=== PATIENT | male | born 1945 | race Caucasian/White ===

== ENCOUNTER 2017-11-01 00:40 | Inpatient (IN) | payer OTHER, MEDICAID ==
[2017-11-01 01:23] LABS: ADD MAN DIFF? NO
[2017-11-01] MEDS: ONDANSETRON 4 MG INJ IV ×2 (01:41→23:51)
[2017-11-01] MEDS: morphine 4 MG/ML VIAL IV ×2 (01:41→07:13)
[2017-11-01 01:42] LABS: PARTIAL THROMBOPLASTIN TIME 23.8 Sec (25.0-35.0); PROTIME 12.2 Sec (11.9-14.9)
[2017-11-01 01:48] LABS: ANION GAP 13 (8-16); BLOOD UREA NITROGEN 13 mg/dl (7-20); CARBON DIOXIDE 26 mmol/L (21-31); CHLORIDE 104 mmol/L (97-110); CREATININE 0.91 mg/dl (0.61-1.24); GLUCOSE 140 mg/dl (70-220); SODIUM 139 mmol/L (135-144)
[2017-11-01 01:58] LABS: TROPONIN-I 0.021 ng/ml (0.00-0.12)
[2017-11-01 02:09] LABS: WHITE BLOOD COUNT 7.1 10^3/ul (4.8-10.8)
[2017-11-01 02:09] LABS: BASOPHILS % 0.3 % (0.0-2.0); EOSINOPHILS # 0.1 10^3/ul (0.0-0.5); EOSINOPHILS % 1.6 % (0.0-7.0); HEMATOCRIT 39.8 % (42.0-52.0); HEMOGLOBIN 13.3 g/dl (14.0-18.0); LYMPHOCYTES % 28.3 % (15.0-51.0); MEAN CORPUSCULAR HGB CONC 33.4 g/dl (32.0-37.0); MEAN CORPUSCULAR VOLUME 89.8 fl (82.0-101.0); MONOCYTE # 0.5 10^3/ul (0.3-0.9); MONOCYTES % 7.5 % (0.0-11.0); NEUTROPHIL # 4.4 10^3/ul (1.6-7.5); NEUTROPHILS % 61.9 % (39.0-77.0); PLATELET COUNT 308 10^3/UL (140-415); RED BLOOD COUNT 4.43 10^6/ul (4.70-6.10); RED CELL DISTRIBUTION WIDTH 13.5 % (11.5-14.5)
[2017-11-01] MEDS ORDERED: ACETAMINOPHEN 325 MG TAB PO (06:30)
[2017-11-01] MEDS ORDERED: NACL 0.9% 3 ML SYG IV (06:30)
[2017-11-01 08:50] LABS: CREATINE KINASE 24 IU/L (23-200)
[2017-11-01 09:03] LABS: CK-MB 0.96 ng/ml (0.0-2.4); TROPONIN-I 0.015 ng/ml (0.00-0.12)
[2017-11-01] MEDS ORDERED: HYDROmorphONE 1 MG/ML SYG IV (14:08)
[2017-11-01] MEDS: KETOROLAC 30 MG INJ IV (14:12)
[2017-11-01 15:00] LABS: CREATINE KINASE 23 IU/L (23-200)
[2017-11-01 15:12] LABS: CK INDEX 3.4
[2017-11-01 15:14] LABS: CK-MB 0.78 ng/ml (0.0-2.4); TROPONIN-I < 0.012 ng/ml (0.00-0.12)
[2017-11-01] MEDS ORDERED: morphine 4 MG/ML VIAL IV (17:30)
[2017-11-01] MEDS: morphine LIQ (10 MG/5 ML) CUP PO (17:56)
[2017-11-01] MEDS ORDERED: INFLUENZA VIRUS VACCINE 0.5 ML SYG IM* (21:00)
[2017-11-01] MEDS: AMLODIPINE 5 MG TAB PO (23:45)
[2017-11-01] MEDS: DEXAMETHASONE 4 MG/ML 1 ML INJ IV (23:45)
[2017-11-01] MEDS: HYDROmorphONE 1 MG/ML SYG IV (23:45)
[2017-11-02] MEDS: DEXAMETHASONE 4 MG/ML 1 ML INJ IV ×4 (01:00→18:48)
[2017-11-02] MEDS: HYDROmorphONE 1 MG/ML SYG IV ×3 (04:29→16:47)
[2017-11-02 09:27] LABS: ADD MAN DIFF? NO
[2017-11-02 09:31] LABS: BASOPHILS % 0.1 % (0.0-2.0); HEMATOCRIT 41.6 % (42.0-52.0); HEMOGLOBIN 13.9 g/dl (14.0-18.0); LYMPHOCYTES # 1.1 10^3/ul (0.8-2.9); LYMPHOCYTES % 9.7 % (15.0-51.0); MEAN CORPUSCULAR HEMOGLOBIN 30.3 pg (29.0-33.0); MEAN CORPUSCULAR HGB CONC 33.4 g/dl (32.0-37.0); MEAN CORPUSCULAR VOLUME 90.6 fl (82.0-101.0); MEAN PLATELET VOLUME 9.1 fl (7.4-10.4); MONOCYTE # 0.2 10^3/ul (0.3-0.9); MONOCYTES % 1.8 % (0.0-11.0); NEUTROPHIL # 9.7 10^3/ul (1.6-7.5); NEUTROPHILS % 87.9 % (39.0-77.0); PLATELET COUNT 338 10^3/UL (140-415); RED BLOOD COUNT 4.59 10^6/ul (4.70-6.10); RED CELL DISTRIBUTION WIDTH 13.5 % (11.5-14.5)
[2017-11-02 09:48] LABS: CHOL/HDL RATIO 4.3 RATIO; CHOLESTEROL 234 mg/dl (100-200); HDL CHOLESTEROL 54 mg/dl (31-75); LDL CHOLESTEROL,CALCULATED 158 mg/dl; MAGNESIUM 2.2 mg/dl (1.7-2.5); TRIGLYCERIDES 109 mg/dl (0-149)
[2017-11-02 09:49] LABS: ALANINE AMINOTRANSFERASE 34 IU/L (13-69); ALBUMIN 4.1 g/dl (3.3-4.9); ALBUMIN/GLOBULIN RATIO 1.32; ALKALINE PHOSPHATASE 54 IU/L (42-121); ANION GAP 15 (8-16); ASPARTATE AMINO TRANSFERASE 20 IU/L (15-46); BILIRUBIN,INDIRECT 0.3 mg/dl (0-1.1); BILIRUBIN,TOTAL 0.3 mg/dl (0.2-1.3); BLOOD UREA NITROGEN 23 mg/dl (7-20); CALCIUM 8.8 mg/dl (8.4-10.2); CARBON DIOXIDE 25 mmol/L (21-31); CHLORIDE 102 mmol/L (97-110); CREATININE 0.92 mg/dl (0.61-1.24); GLUCOSE 146 mg/dl (70-220); POTASSIUM 5.1 mmol/L (3.5-5.1); SODIUM 137 mmol/L (135-144); TOTAL PROTEIN 7.2 g/dl (6.1-8.1)
[2017-11-02 10:29] LABS: HEMOGLOBIN A1C 5.6 % (0-5.9)
[2017-11-02 12:29] LABS: FREE T4 (FREE THYROXINE) 0.87 ng/dl (0.78-2.44)
[2017-11-02 12:49] LABS: THYROID STIMULATING HORMONE 0.868 MIU/L (0.465-4.680)
[2017-11-02] MEDS: FISH OIL 1,000 MG CAP PO (20:46)
[2017-11-02] MEDS: AMLODIPINE 5 MG TAB PO (20:47)
[2017-11-02] MEDS: FAMOTIDINE 20 MG TAB PO (20:47)
[2017-11-03] MEDS: HYDROmorphONE 1 MG/ML SYG IV ×5 (00:12→18:54)
[2017-11-03 09:04] LABS: ADD MAN DIFF? NO
[2017-11-03 09:08] LABS: BASOPHILS % 0.1 % (0.0-2.0); HEMATOCRIT 38.8 % (42.0-52.0); LYMPHOCYTES # 1.3 10^3/ul (0.8-2.9); LYMPHOCYTES % 8.4 % (15.0-51.0); MEAN CORPUSCULAR HEMOGLOBIN 30.3 pg (29.0-33.0); MEAN CORPUSCULAR HGB CONC 33.5 g/dl (32.0-37.0); MEAN CORPUSCULAR VOLUME 90.4 fl (82.0-101.0); MEAN PLATELET VOLUME 9.2 fl (7.4-10.4); MONOCYTE # 1.2 10^3/ul (0.3-0.9); MONOCYTES % 7.2 % (0.0-11.0); NEUTROPHIL # 13.4 10^3/ul (1.6-7.5); NEUTROPHILS % 83.6 % (39.0-77.0); PLATELET COUNT 327 10^3/UL (140-415); RED BLOOD COUNT 4.29 10^6/ul (4.70-6.10); RED CELL DISTRIBUTION WIDTH 13.4 % (11.5-14.5)
[2017-11-03] MEDS: FAMOTIDINE 20 MG TAB PO ×2 (09:19→22:29)
[2017-11-03] MEDS: MULTIVITAMINS THERAPEUTIC TAB PO (09:19)
[2017-11-03] MEDS: FISH OIL 1,000 MG CAP PO ×2 (09:19→22:30)
[2017-11-03] MEDS: METHYLPRED. NA SUCC 1,000 MG in DEXTROSE 5% 50 ML IVPB (09:20)
[2017-11-03 09:31] LABS: MAGNESIUM 2.2 mg/dl (1.7-2.5)
[2017-11-03 09:31] LABS: PHOSPHORUS 3.8 mg/dl (2.5-4.9)
[2017-11-03 09:32] LABS: ANION GAP 14 (8-16); BLOOD UREA NITROGEN 32 mg/dl (7-20); CALCIUM 8.8 mg/dl (8.4-10.2); CARBON DIOXIDE 28 mmol/L (21-31); CHLORIDE 100 mmol/L (97-110); CREATININE 1.01 mg/dl (0.61-1.24); GLUCOSE 129 mg/dl (70-220); POTASSIUM 4.7 mmol/L (3.5-5.1); SODIUM 137 mmol/L (135-144)
[2017-11-03] MEDS: BACLOFEN 10 MG TAB PO (22:29)
[2017-11-03] MEDS: AMLODIPINE 5 MG TAB PO (22:29)
[2017-11-04] MEDS: HYDROmorphONE 1 MG/ML SYG IV ×2 (02:33→10:46)
[2017-11-04 07:45] LABS: ADD MAN DIFF? NO
[2017-11-04 07:49] LABS: BASOPHILS % 0.1 % (0.0-2.0); HEMATOCRIT 39.4 % (42.0-52.0); HEMOGLOBIN 13.4 g/dl (14.0-18.0); LYMPHOCYTES % 6.9 % (15.0-51.0); MEAN CORPUSCULAR HEMOGLOBIN 30.5 pg (29.0-33.0); MEAN CORPUSCULAR VOLUME 89.7 fl (82.0-101.0); MEAN PLATELET VOLUME 9.6 fl (7.4-10.4); MONOCYTES % 6.8 % (0.0-11.0); NEUTROPHIL # 12.9 10^3/ul (1.6-7.5); NEUTROPHILS % 85.7 % (39.0-77.0); PLATELET COUNT 322 10^3/UL (140-415); RED BLOOD COUNT 4.39 10^6/ul (4.70-6.10); RED CELL DISTRIBUTION WIDTH 13.5 % (11.5-14.5)
[2017-11-04 07:49] LABS: WHITE BLOOD COUNT 15.1 10^3/ul (4.8-10.8)
[2017-11-04 08:13] LABS: MAGNESIUM 2.3 mg/dl (1.7-2.5)
[2017-11-04 08:18] LABS: ANION GAP 13 (8-16); BLOOD UREA NITROGEN 36 mg/dl (7-20); CALCIUM 9.1 mg/dl (8.4-10.2); CARBON DIOXIDE 28 mmol/L (21-31); CHLORIDE 99 mmol/L (97-110); CREATININE 0.98 mg/dl (0.61-1.24); GLUCOSE 131 mg/dl (70-220); POTASSIUM 4.9 mmol/L (3.5-5.1); SODIUM 135 mmol/L (135-144)
[2017-11-04] MEDS: FISH OIL 1,000 MG CAP PO ×2 (08:27→20:48)
[2017-11-04] MEDS: MULTIVITAMINS THERAPEUTIC TAB PO (08:27)
[2017-11-04] MEDS: BACLOFEN 10 MG TAB PO ×3 (08:28→20:53)
[2017-11-04] MEDS: FAMOTIDINE 20 MG TAB PO ×2 (08:28→20:50)
[2017-11-04] MEDS: METHYLPRED. NA SUCC 1,000 MG in DEXTROSE 5% 50 ML IVPB (10:51)
[2017-11-04] MEDS: ACETAMINOPHEN 1000MG/100ML IV 100 ML IVPB (14:25)
[2017-11-04] MEDS: DOCUSATE SODIUM 100 MG CAP PO (20:48)
[2017-11-04] MEDS: AMLODIPINE 5 MG TAB PO (20:49)
[2017-11-04] MEDS: POLYETHYLENE GLYCOL 17 GM PACKET PO (20:53)
[2017-11-05] MEDS: ACETAMINOPHEN 1000MG/100ML IV 100 ML IVPB ×2 (00:18→14:48)
[2017-11-05 06:15] LABS: ADD MAN DIFF? NO
[2017-11-05 06:18] LABS: WHITE BLOOD COUNT 12.8 10^3/ul (4.8-10.8)
[2017-11-05 06:18] LABS: ABNORMAL IP MESSAGE 1; EOSINOPHILS # 0.5 10^3/ul (0.0-0.5); EOSINOPHILS % 3.7 % (0.0-7.0); HEMATOCRIT 39.6 % (42.0-52.0); HEMOGLOBIN 13.9 g/dl (14.0-18.0); LYMPHOCYTES # 0.8 10^3/ul (0.8-2.9); LYMPHOCYTES % 6.2 % (15.0-51.0); MEAN CORPUSCULAR HEMOGLOBIN 30.6 pg (29.0-33.0); MEAN CORPUSCULAR HGB CONC 35.1 g/dl (32.0-37.0); MEAN CORPUSCULAR VOLUME 87.2 fl (82.0-101.0); MEAN PLATELET VOLUME 9.5 fl (7.4-10.4); MONOCYTE # 0.5 10^3/ul (0.3-0.9); MONOCYTES % 3.9 % (0.0-11.0); NEUTROPHILS % 85.8 % (39.0-77.0); PLATELET COUNT 334 10^3/UL (140-415); POSITIVE DIFF @See below; RED BLOOD COUNT 4.54 10^6/ul (4.70-6.10); RED CELL DISTRIBUTION WIDTH 13.2 % (11.5-14.5)
[2017-11-05 06:41] LABS: PHOSPHORUS 3.8 mg/dl (2.5-4.9)
[2017-11-05 06:41] LABS: MAGNESIUM 2.3 mg/dl (1.7-2.5)
[2017-11-05 07:06] LABS: ANION GAP 13 (8-16); BLOOD UREA NITROGEN 34 mg/dl (7-20); CARBON DIOXIDE 26 mmol/L (21-31); CHLORIDE 102 mmol/L (97-110); CREATININE 0.97 mg/dl (0.61-1.24); GLUCOSE 142 mg/dl (70-220); POTASSIUM 4.4 mmol/L (3.5-5.1); SODIUM 137 mmol/L (135-144)
[2017-11-05] MEDS: METHYLPRED. NA SUCC 1,000 MG in DEXTROSE 5% 50 ML IVPB (08:45)
[2017-11-05] MEDS: BACLOFEN 10 MG TAB PO ×3 (08:45→21:01)
[2017-11-05] MEDS: FAMOTIDINE 20 MG TAB PO ×2 (08:45→21:01)
[2017-11-05] MEDS: POLYETHYLENE GLYCOL 17 GM PACKET PO ×2 (08:45→21:02)
[2017-11-05] MEDS: FISH OIL 1,000 MG CAP PO ×2 (08:45→21:01)
[2017-11-05] MEDS: DOCUSATE SODIUM 100 MG CAP PO ×2 (08:45→21:01)
[2017-11-05] MEDS: MULTIVITAMINS THERAPEUTIC TAB PO (08:45)
[2017-11-05 12:09] LABS: PROSTATE SPECIFIC ANTIGEN < 0.1 ng/ml (0.0-4.0)
[2017-11-05] MEDS: AMLODIPINE 5 MG TAB PO (21:01)
[2017-11-06] MEDS: FISH OIL 1,000 MG CAP PO ×2 (08:15→20:23)
[2017-11-06] MEDS: DOCUSATE SODIUM 100 MG CAP PO ×2 (08:15→20:20)
[2017-11-06] MEDS: FAMOTIDINE 20 MG TAB PO ×2 (08:16→20:23)
[2017-11-06] MEDS: POLYETHYLENE GLYCOL 17 GM PACKET PO ×2 (08:16→20:19)
[2017-11-06] MEDS: BACLOFEN 10 MG TAB PO ×3 (08:16→20:23)
[2017-11-06] MEDS: MULTIVITAMINS THERAPEUTIC TAB PO (08:16)
[2017-11-06] MEDS: ACETAMINOPHEN 1000MG/100ML IV 100 ML IVPB (16:36)
[2017-11-06] MEDS: METHYLPRED. NA SUCC 1,000 MG in DEXTROSE 5% 50 ML IVPB (17:04)
[2017-11-06] MEDS: AMLODIPINE 5 MG TAB PO (20:23)
[2017-11-06] MEDS: ONDANSETRON 4 MG INJ IV (20:28)
[2017-11-06] MEDS: ZOLPIDEM 5 MG TAB PO (21:58)
[2017-11-07] MEDS: DOCUSATE SODIUM 100 MG CAP PO ×2 (08:28→21:00)
[2017-11-07] MEDS: FISH OIL 1,000 MG CAP PO ×2 (08:28→21:31)
[2017-11-07] MEDS: POLYETHYLENE GLYCOL 17 GM PACKET PO ×2 (08:28→21:00)
[2017-11-07] MEDS: MULTIVITAMINS THERAPEUTIC TAB PO (08:28)
[2017-11-07] MEDS: FAMOTIDINE 20 MG TAB PO ×2 (08:28→21:33)
[2017-11-07] MEDS: BACLOFEN 10 MG TAB PO ×3 (08:28→21:31)
[2017-11-07] MEDS: AMLODIPINE 5 MG TAB PO (21:33)
[2017-11-07] MEDS: ONDANSETRON 4 MG INJ IV (21:33)
[2017-11-07] MEDS: ZOLPIDEM 5 MG TAB PO (21:33)
[2017-11-07] MEDS: ACETAMINOPHEN 1000MG/100ML IV 100 ML IVPB (23:09)
[2017-11-08] MEDS: METHYLPRED. NA SUCC 1,000 MG in DEXTROSE 5% 50 ML IVPB (00:14)
[2017-11-08 07:15] LABS: C-REACTIVE PROTEIN < 0.5 mg/dl (0.0-0.9)
[2017-11-08 07:39] LABS: HIV 1&2 ANTIBODY NEGATIVE (NEGATIVE)
[2017-11-08 08:07] LABS: ERYTHROCYTE SEDIMENTATION RATE 3 mm/Hr (0-20)
[2017-11-08] MEDS: FISH OIL 1,000 MG CAP PO ×2 (09:00→20:30)
[2017-11-08] MEDS: BACLOFEN 10 MG TAB PO ×3 (09:00→20:30)
[2017-11-08] MEDS: POLYETHYLENE GLYCOL 17 GM PACKET PO ×3 (09:00→20:31)
[2017-11-08] MEDS: DOCUSATE SODIUM 100 MG CAP PO ×2 (09:00→20:29)
[2017-11-08] MEDS: FAMOTIDINE 20 MG TAB PO ×2 (09:00→20:30)
[2017-11-08] MEDS: MULTIVITAMINS THERAPEUTIC TAB PO (09:00)
[2017-11-08 16:08] LABS: CSF RBC 0 /uL (0-0); CSF WBC 1 /cmm (0-10)
[2017-11-08 16:18] LABS: CSF COLOR COLORLESS
[2017-11-08 16:18] LABS: CSF CLARITY CLEAR
[2017-11-08 16:19] LABS: CSF#TUBE COUNT TUBE#4; CSF#TUBES REC'D 4; PATH REVIEW? NO
[2017-11-08 16:20] LABS: RHEUMATOID FACTOR NEGATIVE (NEGATIVE)
[2017-11-08 16:24] LABS: TOTAL PROTEIN,CSF 147 mg/dl (12-60)
[2017-11-08 16:24] LABS: GLUCOSE,CSF 98 mg/dl (50-80)
[2017-11-08 16:38] LABS: CSF RBC 0 /uL (0-0); CSF WBC 1 /cmm (0-10)
[2017-11-08 17:09] LABS: CSF CLARITY CLEAR; CSF COLOR COLORLESS; CSF#TUBE COUNT TUBE#1; CSF#TUBES REC'D 4
[2017-11-08 17:10] LABS: PATH REVIEW N
[2017-11-08] MEDS: AMLODIPINE 5 MG TAB PO (20:30)
[2017-11-08] MEDS: ZOLPIDEM 5 MG TAB PO (22:26)
[2017-11-09] MEDS: FISH OIL 1,000 MG CAP PO ×2 (09:20→20:31)
[2017-11-09] MEDS: MULTIVITAMINS THERAPEUTIC TAB PO (09:20)
[2017-11-09] MEDS: DOCUSATE SODIUM 100 MG CAP PO ×2 (09:20→20:30)
[2017-11-09] MEDS: BACLOFEN 10 MG TAB PO ×3 (09:20→20:32)
[2017-11-09] MEDS: FAMOTIDINE 20 MG TAB PO ×2 (09:20→20:31)
[2017-11-09 14:57] LABS: ANA SCREEN NEGATIVE (NEGATIVE); ANCA SCREEN NEGATIVE (NEGATIVE)
[2017-11-09] MEDS: POLYETHYLENE GLYCOL 17 GM PACKET PO ×2 (16:52→20:34)
[2017-11-09] MEDS: AMLODIPINE 5 MG TAB PO (20:34)
[2017-11-09] MEDS: ZOLPIDEM 5 MG TAB PO (22:19)
[2017-11-10 06:20] LABS: ADD MAN DIFF? NO
[2017-11-10 06:32] LABS: WHITE BLOOD COUNT 10.5 10^3/ul (4.8-10.8)
[2017-11-10 06:32] LABS: BASOPHILS % 0.1 % (0.0-2.0); EOSINOPHILS # 0.1 10^3/ul (0.0-0.5); EOSINOPHILS % 1.1 % (0.0-7.0); HEMATOCRIT 39.6 % (42.0-52.0); HEMOGLOBIN 13.6 g/dl (14.0-18.0); LYMPHOCYTES # 2.8 10^3/ul (0.8-2.9); LYMPHOCYTES % 26.8 % (15.0-51.0); MEAN CORPUSCULAR HEMOGLOBIN 30.8 pg (29.0-33.0); MEAN CORPUSCULAR HGB CONC 34.3 g/dl (32.0-37.0); MEAN CORPUSCULAR VOLUME 89.8 fl (82.0-101.0); MEAN PLATELET VOLUME 9.7 fl (7.4-10.4); MONOCYTE # 1.2 10^3/ul (0.3-0.9); MONOCYTES % 11.1 % (0.0-11.0); NEUTROPHIL # 6.3 10^3/ul (1.6-7.5); PLATELET COUNT 229 10^3/UL (140-415); RED BLOOD COUNT 4.41 10^6/ul (4.70-6.10); RED CELL DISTRIBUTION WIDTH 13.5 % (11.5-14.5)
[2017-11-10 07:19] LABS: ANION GAP 11 (8-16); BLOOD UREA NITROGEN 38 mg/dl (7-20); CALCIUM 7.8 mg/dl (8.4-10.2); CARBON DIOXIDE 28 mmol/L (21-31); CHLORIDE 103 mmol/L (97-110); CREATININE 1.07 mg/dl (0.61-1.24); GLUCOSE 92 mg/dl (70-220); POTASSIUM 4.1 mmol/L (3.5-5.1); SODIUM 138 mmol/L (135-144)
[2017-11-10] MEDS: DOCUSATE SODIUM 100 MG CAP PO ×2 (08:11→21:00)
[2017-11-10] MEDS: POLYETHYLENE GLYCOL 17 GM PACKET PO ×2 (08:11→21:00)
[2017-11-10] MEDS: FISH OIL 1,000 MG CAP PO ×2 (08:11→21:00)
[2017-11-10] MEDS: BACLOFEN 10 MG TAB PO ×3 (08:11→20:44)
[2017-11-10] MEDS: FAMOTIDINE 20 MG TAB PO ×2 (08:11→20:44)
[2017-11-10] MEDS: MULTIVITAMINS THERAPEUTIC TAB PO (08:11)
[2017-11-10 14:27] LABS: VDRL, CSF NON-REACTIVE
[2017-11-10] MEDS: AMLODIPINE 5 MG TAB PO (20:44)
[2017-11-11] MEDS: ZOLPIDEM 5 MG TAB PO (00:13)
[2017-11-11 06:39] LABS: ADD MAN DIFF? NO
[2017-11-11 06:56] LABS: BASOPHILS % 0.1 % (0.0-2.0); EOSINOPHILS # 0.2 10^3/ul (0.0-0.5); EOSINOPHILS % 1.9 % (0.0-7.0); HEMATOCRIT 40.9 % (42.0-52.0); LYMPHOCYTES # 2.7 10^3/ul (0.8-2.9); LYMPHOCYTES % 26.9 % (15.0-51.0); MEAN CORPUSCULAR HEMOGLOBIN 30.7 pg (29.0-33.0); MEAN CORPUSCULAR HGB CONC 34.2 g/dl (32.0-37.0); MEAN CORPUSCULAR VOLUME 89.7 fl (82.0-101.0); MEAN PLATELET VOLUME 10.1 fl (7.4-10.4); MONOCYTE # 1.1 10^3/ul (0.3-0.9); MONOCYTES % 10.8 % (0.0-11.0); NEUTROPHILS % 59.2 % (39.0-77.0); PLATELET COUNT 233 10^3/UL (140-415); RED BLOOD COUNT 4.56 10^6/ul (4.70-6.10); RED CELL DISTRIBUTION WIDTH 13.4 % (11.5-14.5)
[2017-11-11 06:56] LABS: WHITE BLOOD COUNT 10.1 10^3/ul (4.8-10.8)
[2017-11-11 07:11] LABS: ANION GAP 10 (8-16); BLOOD UREA NITROGEN 30 mg/dl (7-20); CALCIUM 8.4 mg/dl (8.4-10.2); CARBON DIOXIDE 28 mmol/L (21-31); CHLORIDE 103 mmol/L (97-110); CREATININE 0.96 mg/dl (0.61-1.24); GLUCOSE 100 mg/dl (70-220); POTASSIUM 4.2 mmol/L (3.5-5.1); SODIUM 137 mmol/L (135-144)
[2017-11-11] MEDS: DOCUSATE SODIUM 100 MG CAP PO (08:25)
[2017-11-11 08:26] LABS: ANTI-DNA (DOUBLE STRANDED) <95 U/mL (< 301)
[2017-11-11] MEDS: MULTIVITAMINS THERAPEUTIC TAB PO (08:26)
[2017-11-11] MEDS: FISH OIL 1,000 MG CAP PO (08:26)
[2017-11-11] MEDS: BACLOFEN 10 MG TAB PO ×2 (08:27→12:34)
[2017-11-11] MEDS: FAMOTIDINE 20 MG TAB PO (08:27)
[2017-11-11] MEDS: POLYETHYLENE GLYCOL 17 GM PACKET PO (08:28)
[2017-11-11] MEDS: ONDANSETRON 4 MG INJ IV (08:51)
[2017-11-11] MEDS: HYDROCODONE/APAP (10/325) TAB PO (08:51)
[2017-11-11 15:37] LABS: MYELOPEROXIDASE ANTIBODY <1.0 AI; PROTEINASE-3 ANTIBODY <1.0 AI
== END 2017-11-11 18:25 | disposition short-term general hospital (02) | DRG 99 ==
LOC: MS2 11-05 01:28 → E/R 00:40 → MS4 04:36
PROC: 009U3ZX Drainage of Spinal Canal, Percutaneous Approach, Diagnostic (ICD-10-PCS; principal; 2017-11-08)
PROC: B01B1ZZ Fluoroscopy of Spinal Cord using Low Osmolar Contrast (ICD-10-PCS; 2017-11-08)
DX: G37.3 Acute transverse myelitis in demyelinating disease of central nervous system (principal); I10 Essential (primary) hypertension; G89.29 Other chronic pain; M13.89 Other specified arthritis, multiple sites; R26.9 Unspecified abnormalities of gait and mobility; R07.9 Chest pain, unspecified; R33.9 Retention of urine, unspecified; R93.7 Abnormal findings on diagnostic imaging of other parts of musculoskeletal system; G82.20 Paraplegia, unspecified; M25.551 Pain in right hip; M54.2 Cervicalgia; M54.5 Low back pain; E78.5 Hyperlipidemia, unspecified; E78.00 Pure hypercholesterolemia, unspecified; R53.1 Weakness; Z87.81 Personal history of (healed) traumatic fracture; Z85.46 Personal history of malignant neoplasm of prostate
CPT/HCPCS: 36415; 70450; 70551; 71045; 72125; 72131; 72141; 72142; 72157; 73721; 74176; 80048; 80053; 80061; 82040; 82042; 82164; 82550; 82553; 82784; 82945; 83036; 83735; 84100; 84153; 84154; 84157; 84439; 84443; 84484; 85025; 85610; 85613; 85651; 85730; 86021; 86038; 86140; 86226; 86235; 86430; 86592; 86703; 87070; 87529; 88104; 89051; 90686; 93306; 96374; 96375; 96376; 97110; 97163; 97530; 99285-25